=== PATIENT | male | born 1975 | race African-American/Black ===

== ENCOUNTER 2020-04-02 19:44 | Emergency (ER) | payer BC, MEDICAID ==
[~2020-04-02] VITALS: Ht 175.3 cm; Wt 86.9 kg
[~2020-04-02 19:44] MED LIST: ALBUTEROL INHALER
[2020-04-02 19:57] VITALS: BP 157/83
[2020-04-02] MEDS ORDERED: CEFTRIAXONE 250 MG ONE (20:21)
[2020-04-02] MEDS ORDERED: AZITHROMYCIN 500 MG TABLET ONE (20:21)
[2020-04-02] MEDS ORDERED: CEFTRIAXONE 250 MG IM ONE ×2 (20:30)
[2020-04-02] MEDS ORDERED: AZITHROMYCIN 500 MG TABLET PO ONE ×2 (20:30)
== END 2020-04-02 20:59 | disposition home or self-care (01) ==
LOC: ED 20:48
DX: A54.01 Gonococcal cystitis and urethritis, unspecified (principal); A64 Unspecified sexually transmitted disease; M54.2 Cervicalgia; F15.10 Other stimulant abuse, uncomplicated; Z72.9 Problem related to lifestyle, unspecified
CPT/HCPCS: 87491; 87591; 96372; 99283; J0696

== ENCOUNTER 2020-11-04 15:55 | Emergency (ER) | payer BC ==
[~2020-11-04] VITALS: Ht 172.7 cm; Wt 95.2 kg
--- NOTE | 2020-11-04 17:00 | NUR ---
PLASTERER ROUGH: URINE COLLECTED AND SENT TO LAB
[2020-11-04 17:12] LABS: MICROSCOPIC NOT IND
[2020-11-04 18:29] VITALS: BP 167/112
--- NOTE | 2020-11-04 19:52 | NUR ---
PT NOT IN LOBBY WHEN CALLED FOR ROOM.
== END 2020-11-04 20:07 | disposition left against medical advice (07) ==
LOC: ED 16:00
DX: Z00.00 Encounter for general adult medical examination without abnormal findings (principal)
CPT/HCPCS: 81003; 87491; 87591; 99283